=== PATIENT | female | born 1965 | race Caucasian/White ===

== ENCOUNTER 2020-01-22 11:19 | Inpatient (IN) | payer MEDICAID ==
[~2020-01-22] VITALS: Ht 165.1 cm; Wt 63.2 kg
[~2020-01-22 11:19] MED LIST: ATOR40TA28 PO; CLOP-31 PO; EZET10TA13 PO; FERR-89 PO; METF-960 PO; PANT-31 PO; RIVA20TA PO
[2020-01-22] MEDS ORDERED: DiphenhydrAMINE HCL 50 MG/ML VIAL IM ONE (14:15)
[2020-01-22] MEDS ORDERED: LORazepam 2 MG/ML VIAL IM ONE (14:15)
[2020-01-22] MEDS ORDERED: LEVE250T55 PO (15:40)
[2020-01-22] MEDS ORDERED: CARV3.1231 PO (15:40)
[2020-01-22 17:05] LABS: BASOPHILS % (AUTO) 0.3 % (0.0-2.0); EOSINOPHILS % (AUTO) 0.1 % (1.0-6.0); HEMATOCRIT 34.1 % (36-46); HEMOGLOBIN 11.3 g/dL (12.0-16.0); LYMPHOCYTES # (AUTO) 1.2 K/uL (1.0-4.8); LYMPHOCYTES % (AUTO) 36.2 % (22.0-44.0); MEAN CORPUSCULAR HEMOGLOBIN 30.3 pg (26.0-34.0); MEAN CORPUSCULAR HGB CONC 33.3 G/dL (31.0-37.0); MEAN CORPUSCULAR VOLUME 91 fL (80-100); MONOCYTES # (AUTO) 0.2 K/uL (0.1-1.0); MONOCYTES % (AUTO) 6.7 % (2.0-9.0); NEUTROPHILS # (AUTO) 1.9 K/uL (1.8-7.7); NEUTROPHILS % (AUTO) 56.7 % (40.0-70.0); PLATELET COUNT (AUTO) 169 K/uL (150-450); RED BLOOD CELL COUNT(AUTO) 3.74 MIL/uL (4.00-5.20); RED CELL DISTRIBUTION WIDTH 16.4 % (11.5-14.5)
[2020-01-22 17:20] LABS: ANION GAP 7 mmol/L (8-16); CARBON DIOXIDE 31 mmol/L (22-29); CHLORIDE 104 mmol/L (98-107); CREATININE 1.01 mg/dL (0.60-1.30); GLOMERULAR FILTR. RATE CALC 57 mL/min (>60); GLUCOSE,RANDOM 123 mg/dL (70-110); SODIUM SERUM 142 mmol/L (136-145); UREA NITROGEN, BLOOD 19 mg/dL (7-18)
[2020-01-22 17:21] LABS: CALCIUM, TOTAL 8.8 mg/dL (8.8-10.5)
[2020-01-22 17:26] LABS: ALANINE AMINOTRANSFERASE 23 U/L (12-78); ALBUMIN 3.4 g/dL (3.4-5.0); ALKALINE PHOSPHATASE 44 U/L (46-116); ASPARTATE AMINOTRANSFERASE 27 U/L (15-37); TOTAL PROTEIN, SERUM 6.9 g/dL (6.4-8.2)
[2020-01-22 17:35] LABS: COVID AG,FIA SOURCE NASAL SWAB
[2020-01-22 17:36] LABS: AMPHET/METH SCREEN,URINE NEGATIVE (NEGATIVE); BARBITURATE SCREEN, URINE NEGATIVE (NEGATIVE); BENZODIAZEPINES SCREEN,URINE NEGATIVE (NEGATIVE); CANNABINOID SCREEN,URINE NEGATIVE (NEGATIVE); COCAINE SCREEN,URINE NEGATIVE (NEGATIVE); METHADONE SCREEN, URINE NEGATIVE (NEGATIVE); OPIATE SCREEN,URINE POSITIVE (NEGATIVE)
[2020-01-22 17:41] LABS: APPEARANCE,URINE CLOUDY (CLEAR); GLUCOSE, URINE (UA) NEGATIVE (NEGATIVE); KETONES,URINE TRACE mg/dL (NEGATIVE); LEUKOCYTE ESTERASE ,URINE SMALL (NEGATIVE); NITRATE,URINE POSITIVE (NEGATIVE); OCCULT BLOOD,URINE SMALL (NEGATIVE); PH,URINE 6.5 (5.0-8.0); PROTEIN,URINE TRACE (NEGATIVE)
[2020-01-22 17:43] LABS: BILIRUBIN,URINE PRELIM. POSITIVE (NEGATIVE)
[2020-01-22 17:52] LABS: PHENCYCLIDINE SCREEN,URINE NEGATIVE (NEGATIVE)
[2020-01-22 18:00] LABS: BACTERIA,URINE Many /HPF (None Seen); RBC,URINE 0-2 /HPF (0-2); SQUAMOUS EPITHELIAL CELL,UR Few /LPF (None Seen); WBC,URINE 0-2 /HPF (0-5)
[2020-01-22] MEDS ORDERED: CIPROFLOXACIN 400 MG/D5% WATER 200 ML IV ONE (18:15)
[2020-01-22 21:15] VITALS: BP 148/90
[2020-01-22] MEDS ORDERED: SODIUM CHLORIDE 0.9% 250 ML IV ONE (21:40)
[2020-01-22] MEDS: ATORVASTATIN CALCIUM 40 MG TABLET PO SCH (23:16)
[2020-01-22] MEDS: CARVEDILOL 3.125 MG TABLET PO SCH (23:16)
[2020-01-22] MEDS: AMPICILLIN SODIUM/SULBACTAM NA 1.5 GM in SODIUM CHLORIDE 0.9% 50 ML IV SCH (23:16)
[2020-01-23] VITALS (7 sets, daily range): BP systolic 128–146; BP diastolic 69–88
[2020-01-23] MEDS ORDERED: HEPARIN SODIUM,PORCINE 5,000 UNITS/ML VIAL SQ SCH
[2020-01-23] MEDS: AMPICILLIN SODIUM/SULBACTAM NA 1.5 GM in SODIUM CHLORIDE 0.9% 50 ML IV SCH ×3 (06:16→21:49)
[2020-01-23 06:25] LABS: BASOPHILS % (AUTO) 0.3 % (0.0-2.0); EOSINOPHILS % (AUTO) 0.1 % (1.0-6.0); HEMATOCRIT 28.9 % (36-46); LYMPHOCYTES # (AUTO) 2.1 K/uL (1.0-4.8); LYMPHOCYTES % (AUTO) 55.6 % (22.0-44.0); MEAN CORPUSCULAR HEMOGLOBIN 30.9 pg (26.0-34.0); MEAN CORPUSCULAR HGB CONC 34.4 G/dL (31.0-37.0); MEAN CORPUSCULAR VOLUME 90 fL (80-100); MONOCYTES # (AUTO) 0.4 K/uL (0.1-1.0); MONOCYTES % (AUTO) 9.5 % (2.0-9.0); NEUTROPHILS # (AUTO) 1.3 K/uL (1.8-7.7); NEUTROPHILS % (AUTO) 34.5 % (40.0-70.0); PLATELET COUNT (AUTO) 139 K/uL (150-450); RED BLOOD CELL COUNT(AUTO) 3.22 MIL/uL (4.00-5.20); RED CELL DISTRIBUTION WIDTH 16.7 % (11.5-14.5)
[2020-01-23 06:54] LABS: ANION GAP 6 mmol/L (8-16); CARBON DIOXIDE 31 mmol/L (22-29); CHLORIDE 106 mmol/L (98-107); CREATININE 0.89 mg/dL (0.60-1.30); GLOMERULAR FILTR. RATE CALC > 60 mL/min (>60); GLUCOSE,RANDOM 77 mg/dL (70-110); POTASSIUM 3.7 mmol/L (3.5-5.1); SODIUM SERUM 143 mmol/L (136-145); UREA NITROGEN, BLOOD 16 mg/dL (7-18)
[2020-01-23] MEDS: CLOPIDOGREL BISULFATE 75 MG TABLET PO SCH (08:00)
[2020-01-23] MEDS: PANTOPRAZOLE SODIUM 40 MG DR TABLET PO SCH (08:00)
[2020-01-23] MEDS: LevETIRAcetam 250 MG TABLET PO SCH (08:00)
[2020-01-23] MEDS: CARVEDILOL 3.125 MG TABLET PO SCH ×2 (08:00→21:49)
[2020-01-23] MEDS: FERROUS SULFATE 325 MG EC TABLET PO SCH (08:00)
[2020-01-23] MEDS: ACETAMINOPHEN 325 MG TABLET PO PRN (09:51)
[2020-01-23] MEDS ORDERED: MAGNESIUM SULFATE 2 GM/WATER 50 ML IV ONE (13:30)
[2020-01-23] MEDS: RIVAROXABAN 20 MG TABLET PO SCH (18:24)
[2020-01-23] MEDS: ATORVASTATIN CALCIUM 40 MG TABLET PO SCH (21:49)
[2020-01-24 04:11] VITALS: BP 148/81
[2020-01-24] MEDS: AMPICILLIN SODIUM/SULBACTAM NA 1.5 GM in SODIUM CHLORIDE 0.9% 50 ML IV SCH ×3 (06:16→21:05)
[2020-01-24 06:22] LABS: BASOPHILS % (AUTO) 0.5 % (0.0-2.0); EOSINOPHILS % (AUTO) 0.2 % (1.0-6.0); HEMATOCRIT 29.8 % (36-46); HEMOGLOBIN 10.2 g/dL (12.0-16.0); LYMPHOCYTES # (AUTO) 1.8 K/uL (1.0-4.8); LYMPHOCYTES % (AUTO) 50.6 % (22.0-44.0); MEAN CORPUSCULAR HEMOGLOBIN 31.1 pg (26.0-34.0); MEAN CORPUSCULAR HGB CONC 34.2 G/dL (31.0-37.0); MEAN CORPUSCULAR VOLUME 91 fL (80-100); MONOCYTES # (AUTO) 0.4 K/uL (0.1-1.0); MONOCYTES % (AUTO) 10.4 % (2.0-9.0); NEUTROPHILS # (AUTO) 1.3 K/uL (1.8-7.7); NEUTROPHILS % (AUTO) 38.3 % (40.0-70.0); PLATELET COUNT (AUTO) 139 K/uL (150-450); RED BLOOD CELL COUNT(AUTO) 3.29 MIL/uL (4.00-5.20); RED CELL DISTRIBUTION WIDTH 16.4 % (11.5-14.5)
[2020-01-24 06:40] LABS: ANION GAP 5 mmol/L (8-16); CALCIUM, TOTAL 8.5 mg/dL (8.8-10.5); CARBON DIOXIDE 29 mmol/L (22-29); CHLORIDE 111 mmol/L (98-107); CREATININE 0.94 mg/dL (0.60-1.30); GLOMERULAR FILTR. RATE CALC > 60 mL/min (>60); GLUCOSE,RANDOM 79 mg/dL (70-110); POTASSIUM 4.8 mmol/L (3.5-5.1); SODIUM SERUM 145 mmol/L (136-145); UREA NITROGEN, BLOOD 13 mg/dL (7-18)
[2020-01-24 08:00] VITALS: BP 154/78
[2020-01-24] MEDS: LevETIRAcetam 250 MG TABLET PO SCH (08:05)
[2020-01-24] MEDS: CLOPIDOGREL BISULFATE 75 MG TABLET PO SCH (08:05)
[2020-01-24] MEDS: PANTOPRAZOLE SODIUM 40 MG DR TABLET PO SCH (08:05)
[2020-01-24] MEDS: CARVEDILOL 3.125 MG TABLET PO SCH ×2 (08:05→21:07)
[2020-01-24] MEDS: FERROUS SULFATE 325 MG EC TABLET PO SCH (08:06)
[2020-01-24 11:23] VITALS: BP 109/42
[2020-01-24] MEDS ORDERED: SODIUM CHLORIDE 0.9% 1,000 ML ONE (13:16)
[2020-01-24] MEDS ORDERED: DIGOXIN 250 MCG/ML 2 ML AMP IVP ONE (13:30)
[2020-01-24] MEDS ORDERED: ACETAMINOPHEN 650 MG RECTAL SUPPOSITORY PR PRN (13:30)
[2020-01-24] MEDS ORDERED: AMIODARONE HCL 150 MG in DEXTROSE 5%-WATER 97 ML IV ONE (14:00)
[2020-01-24] MEDS ORDERED: AMIODARONE HCL 360 MG in DEXTROSE 5%-WATER 242.8 ML IV ONE (14:00)
[2020-01-24] MEDS: ONDANSETRON HCL 4 MG/2 ML VIAL IVP PRN (14:32)
[2020-01-24 17:46] LABS: GLUCOMETER DEV NAME(LOC) 5S.2B; GLUCOSE,POINT OF CARE 119 MG/DL (70-110)
[2020-01-24] MEDS: RIVAROXABAN 20 MG TABLET PO SCH (18:23)
[2020-01-24 19:22] VITALS: BP 136/77
[2020-01-24] MEDS ORDERED: AMIODARONE HCL 540 MG in DEXTROSE 5%-WATER 239.2 ML IV ONE (20:00)
[2020-01-24] MEDS: ATORVASTATIN CALCIUM 40 MG TABLET PO SCH (21:07)
[2020-01-24 23:39] VITALS: BP 118/77
[2020-01-25 04:20] VITALS: BP 133/84
[2020-01-25] MEDS: AMPICILLIN SODIUM/SULBACTAM NA 1.5 GM in SODIUM CHLORIDE 0.9% 50 ML IV SCH ×3 (05:39→21:13)
[2020-01-25 07:28] VITALS: BP 159/78
[2020-01-25] MEDS: CLOPIDOGREL BISULFATE 75 MG TABLET PO SCH (09:03)
[2020-01-25] MEDS: LevETIRAcetam 250 MG TABLET PO SCH (09:03)
[2020-01-25] MEDS: PANTOPRAZOLE SODIUM 40 MG DR TABLET PO SCH (09:03)
[2020-01-25] MEDS: FERROUS SULFATE 325 MG EC TABLET PO SCH (09:03)
[2020-01-25] MEDS: CARVEDILOL 3.125 MG TABLET PO SCH ×2 (09:03→20:35)
[2020-01-25 11:08] VITALS: BP 157/83
[2020-01-25] MEDS ORDERED: AMIODARONE HCL 750 MG in DEXTROSE 5%-WATER 485 ML IV SCH (14:00)
[2020-01-25 14:55] VITALS: BP 156/81
[2020-01-25] MEDS: AMIODARONE HCL 200 MG TABLET PO SCH ×2 (15:49→20:35)
[2020-01-25] MEDS: RIVAROXABAN 20 MG TABLET PO SCH (17:12)
[2020-01-25 19:28] VITALS: BP 156/81
[2020-01-25] MEDS: ATORVASTATIN CALCIUM 40 MG TABLET PO SCH (20:35)
[2020-01-25 23:18] VITALS: BP 154/80
[2020-01-26] VITALS (12 sets, daily range): BP systolic 140–164; BP diastolic 72–106
[2020-01-26] MEDS: AMPICILLIN SODIUM/SULBACTAM NA 1.5 GM in SODIUM CHLORIDE 0.9% 50 ML IV SCH (05:58)
[2020-01-26] MEDS: CLOPIDOGREL BISULFATE 75 MG TABLET PO SCH (08:36)
[2020-01-26] MEDS: CARVEDILOL 3.125 MG TABLET PO SCH ×2 (08:36→20:26)
[2020-01-26] MEDS: FERROUS SULFATE 325 MG EC TABLET PO SCH (08:36)
[2020-01-26] MEDS: PANTOPRAZOLE SODIUM 40 MG DR TABLET PO SCH (08:36)
[2020-01-26] MEDS: LevETIRAcetam 250 MG TABLET PO SCH (08:36)
[2020-01-26] MEDS: AMIODARONE HCL 200 MG TABLET PO SCH ×3 (08:38→20:26)
[2020-01-26] MEDS ORDERED: AmLODIPine BESYLATE 10 MG TABLET PO ONE (10:00)
[2020-01-26] MEDS ORDERED: DIGOXIN 250 MCG/ML 2 ML AMP IVP ONE (12:45)
[2020-01-26] MEDS ORDERED: DILTIAZEM HCL 5 MG/ML 5 ML VIAL IVP ONE (13:00)
[2020-01-26] MEDS: DILTIAZEM HCL 125 MG in DEXTROSE 5%-WATER 100 ML IV SCH (13:29)
[2020-01-26] MEDS: RIVAROXABAN 20 MG TABLET PO SCH (17:33)
[2020-01-26] MEDS: ATORVASTATIN CALCIUM 40 MG TABLET PO SCH (20:26)
[2020-01-26] MEDS ORDERED: MORPHINE SULFATE 2 MG/ML SYRINGE IVP STA (21:18)
[2020-01-27 05:08] VITALS: BP 147/81
[2020-01-27 08:00] VITALS: BP 122/81
[2020-01-27] MEDS: DILTIAZEM HCL 125 MG in DEXTROSE 5%-WATER 100 ML IV SCH (08:44)
[2020-01-27] MEDS: PANTOPRAZOLE SODIUM 40 MG DR TABLET PO SCH (10:22)
[2020-01-27] MEDS: FERROUS SULFATE 325 MG EC TABLET PO SCH (10:22)
[2020-01-27] MEDS: CARVEDILOL 3.125 MG TABLET PO SCH ×2 (10:22→21:12)
[2020-01-27] MEDS: CLOPIDOGREL BISULFATE 75 MG TABLET PO SCH (10:22)
[2020-01-27] MEDS: AmLODIPine BESYLATE 10 MG TABLET PO SCH (10:22)
[2020-01-27] MEDS: AMIODARONE HCL 200 MG TABLET PO SCH ×3 (10:22→21:12)
[2020-01-27] MEDS: LevETIRAcetam 250 MG TABLET PO SCH (10:22)
[2020-01-27 11:01] VITALS: BP 125/74
[2020-01-27 15:40] VITALS: BP 121/80
[2020-01-27] MEDS: RIVAROXABAN 20 MG TABLET PO SCH (17:21)
[2020-01-27 19:27] VITALS: BP 112/56
[2020-01-27] MEDS: ATORVASTATIN CALCIUM 40 MG TABLET PO SCH (21:12)
[2020-01-27 23:48] VITALS: BP 127/61
[2020-01-28] MEDS: ACETAMINOPHEN 325 MG TABLET PO PRN (03:36)
[2020-01-28 03:57] VITALS: BP 122/64
[2020-01-28] MEDS: DILTIAZEM HCL 125 MG in DEXTROSE 5%-WATER 100 ML IV SCH (05:30)
[2020-01-28 06:21] LABS: BASOPHILS % (AUTO) 0.3 % (0.0-2.0); EOSINOPHILS % (AUTO) 0.2 % (1.0-6.0); HEMATOCRIT 33.6 % (36-46); HEMOGLOBIN 11.5 g/dL (12.0-16.0); LYMPHOCYTES # (AUTO) 1.5 K/uL (1.0-4.8); LYMPHOCYTES % (AUTO) 24.3 % (22.0-44.0); MEAN CORPUSCULAR HGB CONC 34.4 G/dL (31.0-37.0); MEAN CORPUSCULAR VOLUME 90 fL (80-100); MONOCYTES # (AUTO) 0.5 K/uL (0.1-1.0); MONOCYTES % (AUTO) 8.4 % (2.0-9.0); NEUTROPHILS # (AUTO) 4.1 K/uL (1.8-7.7); NEUTROPHILS % (AUTO) 66.8 % (40.0-70.0); PLATELET COUNT (AUTO) 168 K/uL (150-450); RED BLOOD CELL COUNT(AUTO) 3.72 MIL/uL (4.00-5.20)
[2020-01-28 06:59] LABS: ALBUMIN 2.8 g/dL (3.4-5.0); BILIRUBIN,TOTAL 1.2 mg/dL (0.1-1.0); CALCIUM, TOTAL 7.9 mg/dL (8.8-10.5); CREATININE 1.14 mg/dL (0.60-1.30); POTASSIUM 3.5 mmol/L (3.5-5.1); TOTAL PROTEIN, SERUM 5.9 g/dL (6.4-8.2)
[2020-01-28 07:17] VITALS: BP 116/56
[2020-01-28] MEDS: FERROUS SULFATE 325 MG EC TABLET PO SCH ×2 (08:00→09:04)
[2020-01-28] MEDS: CLOPIDOGREL BISULFATE 75 MG TABLET PO SCH ×2 (09:00→09:04)
[2020-01-28] MEDS: CARVEDILOL 3.125 MG TABLET PO SCH ×3 (09:00→21:00)
[2020-01-28] MEDS: LevETIRAcetam 250 MG TABLET PO SCH ×2 (09:00→09:06)
[2020-01-28] MEDS: AMIODARONE HCL 200 MG TABLET PO SCH ×4 (09:00→21:00)
[2020-01-28] MEDS: PANTOPRAZOLE SODIUM 40 MG DR TABLET PO SCH ×2 (09:00→09:04)
[2020-01-28] MEDS: AmLODIPine BESYLATE 10 MG TABLET PO SCH ×2 (09:00→09:04)
[2020-01-28] MEDS: ONDANSETRON HCL 4 MG/2 ML VIAL IVP PRN (09:05)
[2020-01-28 10:54] VITALS: BP 133/71
[2020-01-28 15:45] VITALS: BP 132/68
[2020-01-28] MEDS: RIVAROXABAN 20 MG TABLET PO SCH (18:00)
[2020-01-28 19:32] VITALS: BP 143/77
[2020-01-28] MEDS: ATORVASTATIN CALCIUM 40 MG TABLET PO SCH (21:00)
[2020-01-29 00:24] VITALS: BP 148/70
[2020-01-29 04:33] VITALS: BP 148/71
[2020-01-29] MEDS: DILTIAZEM HCL 125 MG in DEXTROSE 5%-WATER 100 ML IV SCH (06:19)
[2020-01-29] MEDS: FERROUS SULFATE 325 MG EC TABLET PO SCH (08:00)
[2020-01-29] MEDS: AMIODARONE HCL 200 MG TABLET PO SCH ×3 (08:25→20:14)
[2020-01-29] MEDS: CARVEDILOL 3.125 MG TABLET PO SCH ×2 (08:25→20:14)
[2020-01-29] MEDS: AmLODIPine BESYLATE 10 MG TABLET PO SCH (08:26)
[2020-01-29] MEDS: PANTOPRAZOLE SODIUM 40 MG DR TABLET PO SCH (08:26)
[2020-01-29] MEDS: LevETIRAcetam 250 MG TABLET PO SCH (08:27)
[2020-01-29] MEDS: CLOPIDOGREL BISULFATE 75 MG TABLET PO SCH (08:34)
[2020-01-29 08:44] VITALS: BP 149/86
[2020-01-29 11:23] VITALS: BP 153/93
[2020-01-29] MEDS: ACETAMINOPHEN 325 MG TABLET PO PRN (16:08)
[2020-01-29 16:10] VITALS: BP 120/83
[2020-01-29] MEDS: RIVAROXABAN 20 MG TABLET PO SCH (17:56)
[2020-01-29 19:17] VITALS: BP 122/76
[2020-01-29] MEDS: ATORVASTATIN CALCIUM 40 MG TABLET PO SCH (20:14)
[2020-01-30 00:22] VITALS: BP 125/68
[2020-01-30 04:10] VITALS: BP 121/74
[2020-01-30] MEDS: DILTIAZEM HCL 125 MG in DEXTROSE 5%-WATER 100 ML IV SCH (06:58)
[2020-01-30 06:59] LABS: BASOPHILS % (AUTO) 0.2 % (0.0-2.0); EOSINOPHILS % (AUTO) 0.2 % (1.0-6.0); HEMATOCRIT 36.6 % (36-46); HEMOGLOBIN 12.5 g/dL (12.0-16.0); LYMPHOCYTES # (AUTO) 0.9 K/uL (1.0-4.8); LYMPHOCYTES % (AUTO) 16.5 % (22.0-44.0); MEAN CORPUSCULAR HEMOGLOBIN 30.6 pg (26.0-34.0); MEAN CORPUSCULAR HGB CONC 34.1 G/dL (31.0-37.0); MEAN CORPUSCULAR VOLUME 90 fL (80-100); MONOCYTES # (AUTO) 0.4 K/uL (0.1-1.0); MONOCYTES % (AUTO) 7.9 % (2.0-9.0); NEUTROPHILS # (AUTO) 4.1 K/uL (1.8-7.7); NEUTROPHILS % (AUTO) 75.2 % (40.0-70.0); PLATELET COUNT (AUTO) 180 K/uL (150-450); RED BLOOD CELL COUNT(AUTO) 4.07 MIL/uL (4.00-5.20); RED CELL DISTRIBUTION WIDTH 16.4 % (11.5-14.5)
[2020-01-30 07:10] LABS: CALCIUM, TOTAL 8.5 mg/dL (8.8-10.5); CREATININE 1.05 mg/dL (0.60-1.30)
[2020-01-30] MEDS: FERROUS SULFATE 325 MG EC TABLET PO SCH (08:00)
[2020-01-30] MEDS: CARVEDILOL 3.125 MG TABLET PO SCH (09:00)
[2020-01-30] MEDS: CLOPIDOGREL BISULFATE 75 MG TABLET PO SCH (09:00)
[2020-01-30] MEDS: AMIODARONE HCL 200 MG TABLET PO SCH ×2 (09:00→20:21)
[2020-01-30] MEDS: PANTOPRAZOLE SODIUM 40 MG DR TABLET PO SCH (09:00)
[2020-01-30] MEDS: LevETIRAcetam 250 MG TABLET PO SCH (09:00)
[2020-01-30] MEDS: AmLODIPine BESYLATE 10 MG TABLET PO SCH (09:00)
[2020-01-30] MEDS: METOPROLOL SUCCINATE 50 MG ER TABLET PO SCH (14:00)
[2020-01-30] MEDS ORDERED: DILTIAZEM HCL CD 240 MG ER CAPSULE PO SCH (14:00)
[2020-01-30] MEDS: DILTIAZEM HCL CD 120 MG ER CAPSULE PO SCH (14:00)
[2020-01-30 15:40] VITALS: BP 132/73
[2020-01-30] MEDS: RIVAROXABAN 20 MG TABLET PO SCH (18:00)
[2020-01-30 19:30] VITALS: BP 114/80
[2020-01-30] MEDS: ATORVASTATIN CALCIUM 40 MG TABLET PO SCH (20:22)
[2020-01-30 23:47] VITALS: BP 112/71
[2020-01-31 04:59] VITALS: BP 116/81
[2020-01-31 06:51] LABS: BASOPHILS % (AUTO) 0.3 % (0.0-2.0); EOSINOPHILS % (AUTO) 0.3 % (1.0-6.0); HEMATOCRIT 34.4 % (36-46); HEMOGLOBIN 11.5 g/dL (12.0-16.0); LYMPHOCYTES # (AUTO) 1.3 K/uL (1.0-4.8); MEAN CORPUSCULAR HEMOGLOBIN 30.1 pg (26.0-34.0); MEAN CORPUSCULAR HGB CONC 33.5 G/dL (31.0-37.0); MEAN CORPUSCULAR VOLUME 90 fL (80-100); MONOCYTES # (AUTO) 0.6 K/uL (0.1-1.0); MONOCYTES % (AUTO) 10.8 % (2.0-9.0); NEUTROPHILS # (AUTO) 3.8 K/uL (1.8-7.7); NEUTROPHILS % (AUTO) 65.6 % (40.0-70.0); PLATELET COUNT (AUTO) 189 K/uL (150-450); RED BLOOD CELL COUNT(AUTO) 3.83 MIL/uL (4.00-5.20); RED CELL DISTRIBUTION WIDTH 16.7 % (11.5-14.5)
[2020-01-31 07:45] LABS: CALCIUM, TOTAL 8.5 mg/dL (8.8-10.5); CREATININE 0.99 mg/dL (0.60-1.30); POTASSIUM 3.6 mmol/L (3.5-5.1)
[2020-01-31] MEDS: FERROUS SULFATE 325 MG EC TABLET PO SCH (08:00)
[2020-01-31 08:04] VITALS: BP 123/78
[2020-01-31] MEDS: LevETIRAcetam 250 MG TABLET PO SCH (09:00)
[2020-01-31] MEDS: AMIODARONE HCL 200 MG TABLET PO SCH ×2 (09:00→21:25)
[2020-01-31] MEDS: DILTIAZEM HCL CD 120 MG ER CAPSULE PO SCH (09:00)
[2020-01-31] MEDS: PANTOPRAZOLE SODIUM 40 MG DR TABLET PO SCH (09:00)
[2020-01-31] MEDS: CLOPIDOGREL BISULFATE 75 MG TABLET PO SCH (09:00)
[2020-01-31] MEDS: METOPROLOL SUCCINATE 50 MG ER TABLET PO SCH (09:05)
[2020-01-31 11:11] VITALS: BP 133/84
[2020-01-31 16:17] VITALS: BP 115/78
[2020-01-31] MEDS: RIVAROXABAN 20 MG TABLET PO SCH (18:00)
[2020-01-31 20:00] VITALS: BP 125/85
[2020-01-31] MEDS: ATORVASTATIN CALCIUM 40 MG TABLET PO SCH (21:25)
[2020-02-01] VITALS: BP 134/85
[2020-02-01 04:10] VITALS: BP 145/81
[2020-02-01 06:44] LABS: BASOPHILS % (AUTO) 0.2 % (0.0-2.0); EOSINOPHILS % (AUTO) 0.4 % (1.0-6.0); HEMATOCRIT 35.1 % (36-46); HEMOGLOBIN 11.6 g/dL (12.0-16.0); LYMPHOCYTES # (AUTO) 1.3 K/uL (1.0-4.8); LYMPHOCYTES % (AUTO) 29.8 % (22.0-44.0); MEAN CORPUSCULAR HEMOGLOBIN 30.2 pg (26.0-34.0); MEAN CORPUSCULAR HGB CONC 33.2 G/dL (31.0-37.0); MEAN CORPUSCULAR VOLUME 91 fL (80-100); MONOCYTES # (AUTO) 0.4 K/uL (0.1-1.0); MONOCYTES % (AUTO) 9.4 % (2.0-9.0); NEUTROPHILS # (AUTO) 2.6 K/uL (1.8-7.7); NEUTROPHILS % (AUTO) 60.2 % (40.0-70.0); PLATELET COUNT (AUTO) 204 K/uL (150-450); RED BLOOD CELL COUNT(AUTO) 3.85 MIL/uL (4.00-5.20); RED CELL DISTRIBUTION WIDTH 16.4 % (11.5-14.5)
[2020-02-01 07:42] LABS: CALCIUM, TOTAL 8.5 mg/dL (8.8-10.5); CREATININE 1.02 mg/dL (0.60-1.30); POTASSIUM 3.4 mmol/L (3.5-5.1)
[2020-02-01 07:52] VITALS: BP 125/88
[2020-02-01] MEDS: DILTIAZEM HCL CD 120 MG ER CAPSULE PO SCH (09:00)
[2020-02-01 09:26] VITALS: BP 143/85
[2020-02-01] MEDS: LevETIRAcetam 250 MG TABLET PO SCH (09:27)
[2020-02-01] MEDS: FERROUS SULFATE 325 MG EC TABLET PO SCH (09:27)
[2020-02-01] MEDS: CLOPIDOGREL BISULFATE 75 MG TABLET PO SCH (09:28)
[2020-02-01] MEDS: AMIODARONE HCL 200 MG TABLET PO SCH ×2 (09:28→20:04)
[2020-02-01] MEDS: METOPROLOL SUCCINATE 50 MG ER TABLET PO SCH (09:28)
[2020-02-01] MEDS: PANTOPRAZOLE SODIUM 40 MG DR TABLET PO SCH (09:30)
[2020-02-01] MEDS ORDERED: AMIO200T68 PO (11:22)
[2020-02-01] MEDS ORDERED: ATOR40TA28 PO (11:23)
[2020-02-01] MEDS ORDERED: DILT-39 PO (11:23)
[2020-02-01] MEDS ORDERED: METO-558 PO (11:25)
[2020-02-01] MEDS ORDERED: PANT-31 PO (11:26)
[2020-02-01] MEDS ORDERED: ACET-2865 PO (11:27)
[2020-02-01] MEDS ORDERED: POTASSIUM CHLORIDE 20 MEQ ER TABLET PO ONE (12:15)
[2020-02-01 13:18] VITALS: BP 139/80
[2020-02-01 16:20] VITALS: BP 140/81
[2020-02-01] MEDS: RIVAROXABAN 20 MG TABLET PO SCH (18:00)
[2020-02-01] MEDS: ATORVASTATIN CALCIUM 40 MG TABLET PO SCH (20:04)
== END 2020-02-01 20:40 | disposition home or self-care (01) | DRG 280 ==
LOC: EMS 11:19 → 5S 18:36 → UNDOADMIN 18:36 → ICU 18:36 → 5S 20:49
PROVIDERS: ADMIT Internal Medicine; ATTEND Internal Medicine
DX: I21.4 Non-ST elevation (NSTEMI) myocardial infarction (principal); J18.9 Pneumonia, unspecified organism; G92 Toxic encephalopathy; I48.92 Unspecified atrial flutter; N39.0 Urinary tract infection, site not specified; J91.8 Pleural effusion in other conditions classified elsewhere; G81.94 Hemiplegia, unspecified affecting left nondominant side; J90 Pleural effusion, not elsewhere classified; E11.9 Type 2 diabetes mellitus without complications; E78.00 Pure hypercholesterolemia, unspecified; E78.5 Hyperlipidemia, unspecified; I10 Essential (primary) hypertension; K21.9 Gastro-esophageal reflux disease without esophagitis; R00.1 Bradycardia, unspecified; D69.6 Thrombocytopenia, unspecified; G40.909 Epilepsy, unspecified, not intractable, without status epilepticus; D64.9 Anemia, unspecified; I48.91 Unspecified atrial fibrillation; I25.2 Old myocardial infarction; Z88.8 Allergy status to other drugs, medicaments and biological substances; Z79.01 Long term (current) use of anticoagulants; Z20.828 Contact with and (suspected) exposure to other viral communicable diseases
CPT/HCPCS: 51701; 83735; 87086; 87186; 87426; 93005; 93306; G0480; J0282; J0295; J0744; J1160; J1200; J2060; J2270; J2405; J3475; J3490; J7030; J7050; J7060; 36415-L1; 36415-TC; 71045-TC; 71046; 71046-TC

== ENCOUNTER 2021-03-20 13:14 | Inpatient (IN) | payer MEDICAID ==
[~2021-03-20] VITALS: Ht 157.5 cm; Wt 67.0 kg
[~2021-03-20 13:14] MED LIST changes: -CLOP-31 PO; +CLOP75TA60 PO; +DILT-72 PO; -EZET10TA13 PO; +LEVE250T4 PO; +LEVO-72 PO; +LISI-893 PO; +METF-1211 PO; -METF-960 PO; +METO25XL PO
[2021-03-20 15:07] LABS: BASOPHILS % (AUTO) 0.3 % (0.0-2.0); EOSINOPHILS % (AUTO) 0.6 % (1.0-6.0); HEMOGLOBIN 8.9 g/dL (12.0-16.0); LYMPHOCYTES # (AUTO) 0.9 K/uL (1.0-4.8); LYMPHOCYTES % (AUTO) 16.2 % (22.0-44.0); MEAN CORPUSCULAR HGB CONC 33.1 G/dL (31.0-37.0); MEAN CORPUSCULAR VOLUME 88 fL (80-100); MONOCYTES # (AUTO) 0.3 K/uL (0.1-1.0); MONOCYTES % (AUTO) 4.8 % (2.0-9.0); NEUTROPHILS # (AUTO) 4.5 K/uL (1.8-7.7); NEUTROPHILS % (AUTO) 78.1 % (40.0-70.0); PLATELET COUNT (AUTO) 210 K/uL (150-450); RED BLOOD CELL COUNT(AUTO) 3.08 MIL/uL (4.00-5.20)
[2021-03-20 15:17] LABS: COVID AG,FIA SOURCE NASOPHARYNGEAL
[2021-03-20 15:20] LABS: ANION GAP 7 mmol/L (8-16); CALCIUM, TOTAL 8.6 mg/dL (8.8-10.5); CARBON DIOXIDE 29 mmol/L (22-29); CHLORIDE 104 mmol/L (98-107); CREATININE 1.25 mg/dL (0.60-1.30); GLOMERULAR FILTR. RATE CALC 44 mL/min (>60); GLUCOSE,RANDOM 202 mg/dL (70-110); POTASSIUM 4.3 mmol/L (3.5-5.1); SODIUM SERUM 140 mmol/L (136-145); UREA NITROGEN, BLOOD 51 mg/dL (7-18)
[2021-03-20 15:26] LABS: ALANINE AMINOTRANSFERASE 26 U/L (12-78); ALBUMIN 3.1 g/dL (3.4-5.0); ALKALINE PHOSPHATASE 110 U/L (46-116); ASPARTATE AMINOTRANSFERASE 28 U/L (15-37); BILIRUBIN,TOTAL 0.3 mg/dL (0.1-1.0); TOTAL PROTEIN, SERUM 7.8 g/dL (6.4-8.2)
[2021-03-20] MEDS ORDERED: LANS30CA56 PO (15:28)
[2021-03-20] MEDS ORDERED: LEVO100 PO (15:28)
[2021-03-20] MEDS ORDERED: SITA100 PO (15:28)
[2021-03-20] MEDS ORDERED: AMLO-257 PO (15:28)
[2021-03-20] MEDS ORDERED: BUME1TAB34 PO (15:28)
[2021-03-20 16:29] LABS: APPEARANCE,URINE CLEAR (CLEAR); BILIRUBIN,URINE NEGATIVE (NEGATIVE); GLUCOSE, URINE (UA) NEGATIVE (NEGATIVE); KETONES,URINE NEGATIVE (NEGATIVE); LEUKOCYTE ESTERASE ,URINE TRACE (NEGATIVE); NITRATE,URINE NEGATIVE (NEGATIVE); OCCULT BLOOD,URINE TRACE (NEGATIVE); PROTEIN,URINE POS 1+ (NEGATIVE); UROBILINOGEN,URINE 0.2 mg/dL (<=1.0)
[2021-03-20 16:34] LABS: AMPHET/METH SCREEN,URINE NEGATIVE (NEGATIVE); BARBITURATE SCREEN, URINE NEGATIVE (NEGATIVE); BENZODIAZEPINES SCREEN,URINE NEGATIVE (NEGATIVE); CANNABINOID SCREEN,URINE NEGATIVE (NEGATIVE); COCAINE SCREEN,URINE NEGATIVE (NEGATIVE); METHADONE SCREEN, URINE NEGATIVE (NEGATIVE); OPIATE SCREEN,URINE NEGATIVE (NEGATIVE); PHENCYCLIDINE SCREEN,URINE NEGATIVE (NEGATIVE)
[2021-03-20 17:00] LABS: BACTERIA,URINE None Seen /HPF (None Seen); RBC,URINE None Seen /HPF (0-2); SQUAMOUS EPITHELIAL CELL,UR Few /LPF (None Seen); WBC,URINE 0-2 /HPF (0-5)
[2021-03-20 21:57] LABS: ABG BASE EXCESS 3.4 mmol/L (-2.0-3.0); ABG CARBOXYHEMOGLOBIN 0.8 % (0.0-1.5); ABG HCO3 27.4 mmol/L (22.0-26.0); ABG METHEMOGLOBIN 0.3 % (0.0-1.5); ABG OXYGEN CONTENT 12.2 mL/dL (15.0-23.0); ABG OXYGEN SATURATION 94.1 % (95.0-98.0); ABG OXYHEMOGLOBIN 93.1 % (94.0-100.0); ABG PCO2 37 mmHg (35-45); ABG PH 7.476 (7.35-7.450); ABG TOTAL HEMOGLOBIN 9.3 G/dL (12.0-18.0); SOURCE, BLOOD GAS ARTERIAL; TEMPERATURE, FAHRENHEIT, BG 98.6 FAHREN (96.0-98.6)
[2021-03-20 21:58] LABS: O2 DEVICE,BLOOD GAS CANNULA (ROOM AIR); SITE, BLOOD GAS RT RADIAL
[2021-03-20] MEDS ORDERED: ONDANSETRON HCL 4 MG/2 ML VIAL IVP PRN ×2 (22:00→23:15)
[2021-03-20] MEDS ORDERED: ACETAMINOPHEN 325 MG TABLET PO PRN ×2 (22:00→23:15)
[2021-03-20] MEDS ORDERED: 0.9% SODIUM CHLORIDE 10 ML SYRINGE IVP PRN (22:00)
[2021-03-20] MEDS ORDERED: CLOPIDOGREL BISULFATE 75 MG TABLET PO ONE (22:00)
[2021-03-20] MEDS ORDERED: ZOLPIDEM TARTRATE 5 MG TABLET PO PRN (23:15)
[2021-03-20] MEDS ORDERED: BISACODYL 10 MG RECTAL RECTAL SUPPOSITORY PR PRN (23:15)
[2021-03-20] MEDS ORDERED: MAGNESIUM HYDROXIDE SUSPENSION 30 ML UDCUP PO PRN (23:15)
[2021-03-20] MEDS ORDERED: HYDROCODONE/ACETAMINOPHEN 5-325 MG TABLET PO PRN (23:15)
[2021-03-20] MEDS ORDERED: MORPHINE SULFATE 2 MG/ML SYRINGE IVP PRN (23:15)
[2021-03-21] MEDS ORDERED: HEPARIN SODIUM,PORCINE 5,000 UNITS/ML VIAL SQ SCH
[2021-03-21 02:11] VITALS: BP 144/93
[2021-03-21] MEDS ORDERED: HEPARIN SODIUM,PORCINE 5,000 UNITS/ML VIAL IVP ONE (02:45)
[2021-03-21] MEDS ORDERED: HEPARIN SODIUM,PORCINE 5,000 UNITS/ML VIAL IVP PRN (02:45)
[2021-03-21] MEDS: HEPARIN SODIUM 25000 UNITS/D5W 250 ML IV PRN (03:58)
[2021-03-21 05:43] VITALS: BP 145/85
[2021-03-21] MEDS ORDERED: -PHARMACY VACCINE NOTE- MISC ONE (05:45)
[2021-03-21] MEDS ORDERED: INFLUENZA VIRUS VACCINE QVS 2021-22 (6MO+)/PF 60 MCG/0.5 ML SYRINGE IM. ONE (05:45)
[2021-03-21] MEDS: LEVOTHYROXINE SODIUM 100 MCG TABLET PO SCH (06:24)
[2021-03-21 08:36] LABS: BASOPHILS % (AUTO) 0.3 % (0.0-2.0); EOSINOPHILS % (AUTO) 1.3 % (1.0-6.0); HEMATOCRIT 27.6 % (36-46); HEMOGLOBIN 9.4 g/dL (12.0-16.0); LYMPHOCYTES # (AUTO) 1.5 K/uL (1.0-4.8); LYMPHOCYTES % (AUTO) 23.4 % (22.0-44.0); MEAN CORPUSCULAR HEMOGLOBIN 29.1 pg (26.0-34.0); MEAN CORPUSCULAR HGB CONC 33.9 G/dL (31.0-37.0); MEAN CORPUSCULAR VOLUME 86 fL (80-100); MONOCYTES # (AUTO) 0.3 K/uL (0.1-1.0); MONOCYTES % (AUTO) 4.6 % (2.0-9.0); NEUTROPHILS # (AUTO) 4.5 K/uL (1.8-7.7); NEUTROPHILS % (AUTO) 70.4 % (40.0-70.0); PLATELET COUNT (AUTO) 251 K/uL (150-450); RED BLOOD CELL COUNT(AUTO) 3.22 MIL/uL (4.00-5.20); RED CELL DISTRIBUTION WIDTH 18.7 % (11.5-14.5)
[2021-03-21 08:45] LABS: CALCIUM, TOTAL 8.8 mg/dL (8.8-10.5); CREATININE 1.05 mg/dL (0.60-1.30); POTASSIUM 4.4 mmol/L (3.5-5.1)
[2021-03-21] MEDS: DILTIAZEM HCL CD 240 MG ER CAPSULE PO SCH (08:50)
[2021-03-21] MEDS: LevETIRAcetam 250 MG TABLET PO SCH (08:50)
[2021-03-21] MEDS: CLOPIDOGREL BISULFATE 75 MG TABLET PO SCH (08:50)
[2021-03-21] MEDS: AmLODIPine BESYLATE 5 MG TABLET PO SCH (08:50)
[2021-03-21] MEDS: PANTOPRAZOLE SODIUM 40 MG DR TABLET PO SCH (08:50)
[2021-03-21] MEDS: LISINOPRIL 10 MG TABLET PO SCH (08:50)
[2021-03-21] MEDS: DOCUSATE SODIUM 100 MG CAPSULE PO SCH ×3 (08:51→20:46)
[2021-03-21] MEDS ORDERED: BUMETANIDE 0.25 MG/ML 4 ML VIAL IVP SCH (09:00)
[2021-03-21 10:12] VITALS: BP 136/80
[2021-03-21] MEDS: BUMETANIDE 0.25 MG/ML 10 ML VIAL IVP SCH (11:10)
[2021-03-21] MEDS ORDERED: AMIODARONE HCL 360 MG in DEXTROSE 5%-WATER 242.8 ML IV ONE (13:00)
[2021-03-21] MEDS ORDERED: AMIODARONE HCL 150 MG in DEXTROSE 5%-WATER 97 ML IV ONE (13:00)
[2021-03-21 14:05] VITALS: BP 108/73
[2021-03-21] MEDS ORDERED: RIVAROXABAN 20 MG TABLET PO SCH (17:30)
[2021-03-21] MEDS ORDERED: AMIODARONE HCL 540 MG in DEXTROSE 5%-WATER 239.2 ML IV ONE (19:00)
[2021-03-21] MEDS: ATORVASTATIN CALCIUM 40 MG TABLET PO SCH (20:29)
[2021-03-21 21:48] VITALS: BP 98/60
[2021-03-22] MEDS: HEPARIN SODIUM 25000 UNITS/D5W 250 ML IV PRN ×2 (00:12→20:08)
[2021-03-22 00:44] LABS: BASOPHILS % (AUTO) 0.2 % (0.0-2.0); EOSINOPHILS % (AUTO) 0.7 % (1.0-6.0); HEMATOCRIT 24.6 % (36-46); HEMOGLOBIN 8.3 g/dL (12.0-16.0); LYMPHOCYTES # (AUTO) 1.6 K/uL (1.0-4.8); LYMPHOCYTES % (AUTO) 27.1 % (22.0-44.0); MEAN CORPUSCULAR HEMOGLOBIN 28.7 pg (26.0-34.0); MEAN CORPUSCULAR HGB CONC 33.5 G/dL (31.0-37.0); MEAN CORPUSCULAR VOLUME 86 fL (80-100); MONOCYTES # (AUTO) 0.3 K/uL (0.1-1.0); PLATELET COUNT (AUTO) 220 K/uL (150-450); RED BLOOD CELL COUNT(AUTO) 2.87 MIL/uL (4.00-5.20); RED CELL DISTRIBUTION WIDTH 18.8 % (11.5-14.5)
[2021-03-22 00:52] LABS: CALCIUM, TOTAL 8.2 mg/dL (8.8-10.5); CREATININE 1.27 mg/dL (0.60-1.30); POTASSIUM 3.9 mmol/L (3.5-5.1)
[2021-03-22] MEDS: HEPARIN SODIUM,PORCINE 5,000 UNITS/ML VIAL IVP PRN (01:25)
[2021-03-22] MEDS: LEVOTHYROXINE SODIUM 100 MCG TABLET PO SCH (05:46)
[2021-03-22] MEDS: DOCUSATE SODIUM 100 MG CAPSULE PO SCH ×2 (09:49→19:58)
[2021-03-22] MEDS: AmLODIPine BESYLATE 5 MG TABLET PO SCH (09:49)
[2021-03-22] MEDS: LISINOPRIL 10 MG TABLET PO SCH (09:49)
[2021-03-22] MEDS: DILTIAZEM HCL CD 240 MG ER CAPSULE PO SCH (09:49)
[2021-03-22] MEDS: CLOPIDOGREL BISULFATE 75 MG TABLET PO SCH (09:49)
[2021-03-22] MEDS: PANTOPRAZOLE SODIUM 40 MG DR TABLET PO SCH (09:49)
[2021-03-22] MEDS: BUMETANIDE 0.25 MG/ML 10 ML VIAL IVP SCH (09:49)
[2021-03-22] MEDS: LevETIRAcetam 250 MG TABLET PO SCH (09:52)
[2021-03-22 10:05] VITALS: BP 129/73
[2021-03-22 12:41] LABS: GLUCOMETER DEV NAME(LOC) 5S.1; GLUCOSE,POINT OF CARE 154 MG/DL (70-110)
[2021-03-22] MEDS ORDERED: AMIODARONE HCL 750 MG in DEXTROSE 5%-WATER 485 ML IV SCH (13:00)
[2021-03-22 13:28] VITALS: BP 123/69
[2021-03-22] MEDS: METOPROLOL SUCCINATE 25 MG ER TABLET PO SCH (13:37)
[2021-03-22 15:39] VITALS: BP 119/68
[2021-03-22 17:16] LABS: GLUCOMETER DEV NAME(LOC) 5S.1; GLUCOSE,POINT OF CARE 176 MG/DL (70-110)
[2021-03-22 19:27] VITALS: BP 114/68
[2021-03-22] MEDS: ATORVASTATIN CALCIUM 40 MG TABLET PO SCH (19:58)
[2021-03-22 22:06] LABS: GLUCOMETER DEV NAME(LOC) 5S.1; GLUCOSE,POINT OF CARE 152 MG/DL (70-110)
[2021-03-23] MEDS: LEVOTHYROXINE SODIUM 100 MCG TABLET PO SCH (05:41)
[2021-03-23 05:46] VITALS: BP 119/69
[2021-03-23 05:57] LABS: GLUCOMETER DEV NAME(LOC) 5S.2B; GLUCOSE,POINT OF CARE 138 MG/DL (70-110)
[2021-03-23 08:10] LABS: CALCIUM, TOTAL 8.4 mg/dL (8.8-10.5); CREATININE 1.11 mg/dL (0.60-1.30); POTASSIUM 3.7 mmol/L (3.5-5.1)
[2021-03-23 08:46] LABS: BASOPHILS % (AUTO) 0.2 % (0.0-2.0); EOSINOPHILS % (AUTO) 0.8 % (1.0-6.0); HEMATOCRIT 25.4 % (36-46); HEMOGLOBIN 8.4 g/dL (12.0-16.0); LYMPHOCYTES # (AUTO) 1.4 K/uL (1.0-4.8); LYMPHOCYTES % (AUTO) 28.5 % (22.0-44.0); MEAN CORPUSCULAR HGB CONC 33.3 G/dL (31.0-37.0); MEAN CORPUSCULAR VOLUME 87 fL (80-100); MONOCYTES # (AUTO) 0.3 K/uL (0.1-1.0); MONOCYTES % (AUTO) 7.1 % (2.0-9.0); NEUTROPHILS # (AUTO) 3.1 K/uL (1.8-7.7); NEUTROPHILS % (AUTO) 63.4 % (40.0-70.0); PLATELET COUNT (AUTO) 195 K/uL (150-450); RED BLOOD CELL COUNT(AUTO) 2.91 MIL/uL (4.00-5.20); RED CELL DISTRIBUTION WIDTH 18.3 % (11.5-14.5)
[2021-03-23 09:14] VITALS: BP 124/72
[2021-03-23] MEDS: DILTIAZEM HCL CD 240 MG ER CAPSULE PO SCH (09:48)
[2021-03-23] MEDS: DOCUSATE SODIUM 100 MG CAPSULE PO SCH ×2 (09:48→21:00)
[2021-03-23] MEDS: METOPROLOL SUCCINATE 25 MG ER TABLET PO SCH (09:49)
[2021-03-23] MEDS: AmLODIPine BESYLATE 5 MG TABLET PO SCH (09:49)
[2021-03-23] MEDS: BUMETANIDE 0.25 MG/ML 10 ML VIAL IVP SCH (09:49)
[2021-03-23] MEDS: CLOPIDOGREL BISULFATE 75 MG TABLET PO SCH (09:49)
[2021-03-23] MEDS: LevETIRAcetam 250 MG TABLET PO SCH (09:49)
[2021-03-23] MEDS: LISINOPRIL 10 MG TABLET PO SCH (09:49)
[2021-03-23] MEDS: PANTOPRAZOLE SODIUM 40 MG DR TABLET PO SCH (09:49)
[2021-03-23] MEDS: HEPARIN SODIUM,PORCINE 5,000 UNITS/ML VIAL IVP PRN (10:18)
[2021-03-23 12:53] VITALS: BP 122/71
[2021-03-23] MEDS: AMIODARONE HCL 200 MG TABLET PO SCH ×2 (14:32→21:22)
[2021-03-23] MEDS: RIVAROXABAN 15 MG TABLET PO SCH (14:33)
[2021-03-23 17:26] VITALS: BP 120/72
[2021-03-23 17:47] LABS: GLUCOMETER DEV NAME(LOC) 5S.1; GLUCOSE,POINT OF CARE 150 MG/DL (70-110)
[2021-03-23] MEDS: ATORVASTATIN CALCIUM 40 MG TABLET PO SCH (21:22)
[2021-03-23 22:18] VITALS: BP 109/67
[2021-03-24] MEDS: LEVOTHYROXINE SODIUM 100 MCG TABLET PO SCH (06:01)
[2021-03-24 06:53] VITALS: BP 102/76
[2021-03-24 08:03] LABS: ALBUMIN 2.8 g/dL (3.4-5.0); BILIRUBIN,TOTAL 0.5 mg/dL (0.1-1.0); CALCIUM, TOTAL 8.6 mg/dL (8.8-10.5); CREATININE 1.28 mg/dL (0.60-1.30); POTASSIUM 4.5 mmol/L (3.5-5.1); TOTAL PROTEIN, SERUM 7.3 g/dL (6.4-8.2)
[2021-03-24 08:08] VITALS: BP 122/69
[2021-03-24] MEDS: LevETIRAcetam 250 MG TABLET PO SCH (08:39)
[2021-03-24] MEDS: AMIODARONE HCL 200 MG TABLET PO SCH ×2 (08:39→21:00)
[2021-03-24] MEDS: AmLODIPine BESYLATE 5 MG TABLET PO SCH (08:39)
[2021-03-24] MEDS: PANTOPRAZOLE SODIUM 40 MG DR TABLET PO SCH (08:39)
[2021-03-24] MEDS: DOCUSATE SODIUM 100 MG CAPSULE PO SCH ×2 (08:39→20:46)
[2021-03-24] MEDS: CLOPIDOGREL BISULFATE 75 MG TABLET PO SCH (08:39)
[2021-03-24] MEDS: LISINOPRIL 10 MG TABLET PO SCH (08:39)
[2021-03-24] MEDS: METOPROLOL SUCCINATE 25 MG ER TABLET PO SCH (08:39)
[2021-03-24] MEDS: DILTIAZEM HCL CD 240 MG ER CAPSULE PO SCH (08:39)
[2021-03-24] MEDS: BUMETANIDE 0.25 MG/ML 10 ML VIAL IVP SCH (08:40)
[2021-03-24 12:32] LABS: GLUCOMETER DEV NAME(LOC) 5S.2B; GLUCOSE,POINT OF CARE 176 MG/DL (70-110)
[2021-03-24 14:11] VITALS: BP 100/61
[2021-03-24 15:58] VITALS: BP 101/57
[2021-03-24] MEDS: RIVAROXABAN 15 MG TABLET PO SCH (18:25)
[2021-03-24 19:35] VITALS: BP 114/61
[2021-03-24 20:37] LABS: GLUCOMETER DEV NAME(LOC) 5S.2B; GLUCOSE,POINT OF CARE 154 MG/DL (70-110)
[2021-03-24] MEDS: ATORVASTATIN CALCIUM 40 MG TABLET PO SCH (20:46)
[2021-03-24 23:33] VITALS: BP 122/64
[2021-03-25 03:40] VITALS: BP 116/61
[2021-03-25 04:56] LABS: GLUCOMETER DEV NAME(LOC) 5S.2B; GLUCOSE,POINT OF CARE 151 MG/DL (70-110)
[2021-03-25] MEDS: LEVOTHYROXINE SODIUM 100 MCG TABLET PO SCH (06:29)
[2021-03-25 08:00] VITALS: BP 134/94
[2021-03-25] MEDS: LevETIRAcetam 250 MG TABLET PO SCH (09:00)
[2021-03-25] MEDS: DOCUSATE SODIUM 100 MG CAPSULE PO SCH (09:29)
[2021-03-25] MEDS: BUMETANIDE 0.25 MG/ML 10 ML VIAL IVP SCH (09:30)
[2021-03-25] MEDS: AMIODARONE HCL 200 MG TABLET PO SCH (09:31)
[2021-03-25] MEDS: CLOPIDOGREL BISULFATE 75 MG TABLET PO SCH (09:31)
[2021-03-25] MEDS: AmLODIPine BESYLATE 5 MG TABLET PO SCH (09:31)
[2021-03-25] MEDS: PANTOPRAZOLE SODIUM 40 MG DR TABLET PO SCH (09:32)
[2021-03-25] MEDS: METOPROLOL SUCCINATE 25 MG ER TABLET PO SCH (09:32)
[2021-03-25] MEDS: LISINOPRIL 10 MG TABLET PO SCH (09:32)
[2021-03-25] MEDS: DILTIAZEM HCL CD 240 MG ER CAPSULE PO SCH (09:37)
[2021-03-25 11:10] VITALS: BP 128/75
[2021-03-25] MEDS ORDERED: AMIO200 PO (12:18)
[2021-03-25] MEDS ORDERED: RIVA15TA PO (12:18)
[2021-03-25] MEDS ORDERED: METO25XL PO (12:18)
[2021-03-25 15:26] VITALS: BP 119/60
[2021-03-25 20:12] LABS: GLUCOMETER DEV NAME(LOC) 5S.1; GLUCOSE,POINT OF CARE 176 MG/DL (70-110)
== END 2021-03-25 17:45 | disposition home or self-care (01) | DRG 190 ==
LOC: EMS 13:28 → 5S 03-21 00:15
PROVIDERS: ADMIT Internal Medicine; ATTEND Internal Medicine
DX: I21.4 Non-ST elevation (NSTEMI) myocardial infarction (principal); J96.01 Acute respiratory failure with hypoxia; I50.43 Acute on chronic combined systolic (congestive) and diastolic (congestive) heart failure; I13.0 Hypertensive heart and chronic kidney disease with heart failure and stage 1 through stage 4 chronic kidney disease, or unspecified chronic kidney disease; F29 Unspecified psychosis not due to a substance or known physiological condition; D63.1 Anemia in chronic kidney disease; E11.22 Type 2 diabetes mellitus with diabetic chronic kidney disease; I69.354 Hemiplegia and hemiparesis following cerebral infarction affecting left non-dominant side; E78.00 Pure hypercholesterolemia, unspecified; F03.90 Unspecified dementia, unspecified severity, without behavioral disturbance, psychotic disturbance, mood disturbance, and anxiety; I25.10 Atherosclerotic heart disease of native coronary artery without angina pectoris; N18.9 Chronic kidney disease, unspecified; I24.9 Acute ischemic heart disease, unspecified; I48.0 Paroxysmal atrial fibrillation; Z20.822 Contact with and (suspected) exposure to COVID-19; Z79.899 Other long term (current) drug therapy; Z95.1 Presence of aortocoronary bypass graft; Z79.01 Long term (current) use of anticoagulants; Z79.02 Long term (current) use of antithrombotics/antiplatelets; Z79.84 Long term (current) use of oral hypoglycemic drugs; I25.2 Old myocardial infarction; Z87.442 Personal history of urinary calculi; Z88.8 Allergy status to other drugs, medicaments and biological substances
CPT/HCPCS: 36600; 71045; 80048; 80053; 81001; 82271; 82805; 82962; 83880; 84484; 85025; 85730; 92526; 92610; 93005; 93306; 99285; G0378; G0480; J0282; J1644; J3490; J7060; 36415-L1; 36415-TC